=== PATIENT | male | born 1965 | race Two or more races ===

== ENCOUNTER 2024-11-09 14:20 | Emergency (ER) | payer MEDICAID, SELFPAY ==
--- NOTE | 2024-11-09 14:23 | XR_ITS ---
Examination: CTA carotids with intravenous contrast CTA brain, head with intravenous contrast. 2-D sagittal, coronal reconstructions. 3-D reconstructions. Exam date and time: November 09, 2024 1416 hours INDICATIONS: Stroke alert, onset left-sided facial droop left-sided body weakness today, large right basal ganglia hemorrhage on CT stroke alert brain scan today CTDI: vol (mGy) 12.2 DLP: (mGycm) 510 Technique: Multiple CTA axial brain, head carotid images post intravenous contrast injection 75 cc, [id number]. 2-D sagittal, coronal reconstructions. 3-D reconstructions, 3-D post processing including vascular maximum intensity projection images. Low dose protocols were performed. One or more of the following dose reduction techniques were used; automated exposure control, adjustment of the mA and/or KV according to patient size, use of iterative reconstruction technique. Findings: No significant common carotid carotid bifurcation or internal carotid artery stenoses Dominant left vertebral artery in the neck with no significant stenoses No cerebral large vessel arterial occlusions thrombus dissection or cerebral aneurysm Again noted large hemorrhage in the right basal ganglia IMPRESSION: No significant neck arterial stenoses No cerebral large vessel arterial occlusions
--- NOTE | 2024-11-09 14:23 | XR_ITS ---
Examination: CT brain head without contrast. 2-D sagittal coronal reconstructions Date and time of exam:November 09, 2024 1431 hours INDICATIONS: Stroke alert, onset left-sided facial droop with subtle body weakness today CTDI: vol (mGy):70.3 DLP: (mGycm):1160 Technique: Multiple CT axial sections of the brain have been obtained, 5 mm slice thickness. Contrast has not been administered. 2-D sagittal, coronal reconstructions have been obtained Low dose protocols were performed. One or more of the following dose reduction techniques were used; automated exposure control, adjustment of the mA and/or KV according to patient size, use of iterative reconstruction technique. Findings: 27 mm acute hemorrhage in the right basal ganglia Ventricles are not enlarged No significant mass effect Cranial vault is intact IMPRESSION: 27 mm acute hemorrhage in the right basal ganglia
--- NOTE | 2024-11-09 14:23 | EKG_ITS ---
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
--- NOTE | 2024-11-09 14:25 | PD.EDNEURO ---
Neuro Symptoms Deficit-RME/HPI General Chief Complaint: Neuro Symptoms/Deficit Stated Complaint: LT SIDE WEAKNESS SINCE 10PM LAST NIGHT Time Seen by Provider: 11/09/24 14:22 Arrival date/time: 11/09/24 14:20 RME / HPI RME / HPI Narrative: 59-year-old male patient with significant history of hypertension diabetes mellitus, came in for evaluation regarding left-sided weakness. Patient last well-known time was 10 PM last night that time went to sleep. Patient woke up at 11 AM this morning and noticed left sided facial symmetry, numbness and slight weakness to the left upper extremity. Patient told me that he is dropping a lot of things when driving on the left hand. Denies any headache. Denies any other complaints. Patient was also noticed to have slight slurring of speech. Currently taking Eliquis. Related Data Home Medications ?Medication ?Instructions ?Recorded ?Confirmed aripiprazole 15 mg tablet 15 mg PO QDAY 05/18/20 11/09/24 atorvastatin 20 mg tablet 20 mg PO QPM 05/18/20 11/09/24 metformin 1,000 mg tablet 1,000 mg PO BID 05/18/20 11/09/24 apixaban 5 mg tablet (Eliquis) 5 mg PO QDAY 06/11/20 11/09/24 empagliflozin 10 mg tablet 10 mg PO QAM 11/09/24 11/09/24 (Jardiance) losartan 50 mg tablet (Cozaar) 50 mg PO QDAY 11/09/24 11/09/24 Allergies Allergy/AdvReac Type Severity Reaction Status Date / Time No Known Allergies Allergy Verified 06/11/20 02:49 Review of Systems Review of Systems Narrative Review of Systems: Review of system reviewed and within normal limits except mentioned in HPI ED Exam Narrative Physical exam: VITAL SIGNS: Reviewed. GENERAL APPEARANCE: Alert and interactive, follows commands, no acute distress, HEAD AND FACE: Non-traumatic. Left facial asymmetry noted, no eye ptosis noted ENT: PERRL, pink conjunctivitis, eyelid no trauma, Mucous membrane moist. Tongue is slightly deviated on the left NECK: Supple, nontender, no nuchal rigidity. CHEST: No tenderness, no crepitus, no paradoxical movement, no retractions. LUNGS: Clear, well ventilated, symmetric, no rales, no wheezing, no ronchi, no stridor, good breath sounds bilaterally. HEART: Regular rate, regular rhythm, no murmur, no gallops. ABDOMEN: Soft, positive bowel sounds, nondistended, no guarding, nontender, no rebound, no masses, RECTAL: Deferred. GENITAL: Deferred. NEUROLOGICAL: Gross motor function intact sensory function intact however slight weakness on handgrip on the left, Appropriate for age. MUSCULOSKELETAL: low back nontender, full range of motion. EXTREMITIES: Nontender, full range of motion. SKIN: Color pink, dry, no rash, no lacerations, no abrasions, no contusions. LYMPHATICS: Deferred. Course Quality Measures none Orders Category Date Time Status Bedside Blood Glucose NOW Care 11/09/24 14:23 Completed Communications And Signals Supervisor NOW Care 11/09/24 14:23 Completed Continuous Pulse Oximetry NOW Care 11/09/24 14:23 Completed EKG (ED ONLY) *Do not use* NOW Care 11/09/24 14:23 Completed In and Out Catheter NEEDED Care 11/09/24 14:23 Completed Insert IV NOW Care 11/09/24 14:23 Completed NIH Stroke Scale now Care 11/09/24 14:23 Completed NPO NOW Care 11/09/24 14:23 Completed Nurse Swallow Screen x1 Care 11/09/24 14:23 Completed Consult to Neurology / Tele-Neurology Routine Cons 11/09/24 14:23 Active Referral - Central Supply Worker Stat Cons 11/09/24 14:[address] angio stroke protocol Stat Exams 11/09/24 14:[address] stroke protocol Stat Exams 11/09/24 14:23 Completed EKG (ED Only) Stat Exams 11/09/24 14:23 Draft CBC Stat Lab 11/09/24 14:25 Completed Comprehensive Metabolic Panel Stat Lab 11/09/24 14:25 Completed Magnesium Stat Lab 11/09/24 14:25 Completed Partial Thromboplastin Time Stat Lab 11/09/24 14:25 Completed Prothrombin Time with INR Stat Lab 11/09/24 14:25 Completed Troponin I Stat Lab 11/09/24 14:25 Completed Nicardipine/Ns 20Mg Ivpb [Cardene Ivpb] Med 11/09/24 14:50 Discontinued 20 mg in 200 ml IV 5 mg/hr Ondansetron Inj [Zofran Inj] Med 11/09/24 14:23 Discontinued 4 mg IV Q4HR PRN Prothrombin Complex Concent [Kcentra IV] 2,000 unit Med 11/09/24 14:54 Discontinued Sterile Water 80 ml Container,Empty 150 ml [Empty Container Bag 150 ml] 1 bag IV X1 Oxygen Delivery NOW RT 11/09/24 14:23 Completed Vital Signs Vital signs: Vital Signs Temperature 97.6 F 11/09/24 14:28 Pulse Rate 102 H 11/09/24 14:28 Respiratory Rate 16 11/09/24 14:28 Blood Pressure 146/96 H 11/09/24 14:28 Pulse Oximetry (%) 96 11/09/24 14:28 Oxygen Delivery Method Room Air 11/09/24 14:28 Neuro Symptoms / Deficit MDM Narrative MDM Narrative:: 59-year-old male patient with significant history of hypertension diabetes mellitus, came in for evaluation regarding left-sided weakness. Patient last well-known time was 10 PM last night that time went to sleep. Patient woke up at 11 AM this morning and noticed left sided facial symmetry, numbness and slight weakness to the left upper extremity. Patient told me that he is dropping a lot of things when driving on the left hand. Denies any headache. Denies any other complaints. Patient was also noticed to have slight slurring of speech. Currently taking Eliquis. Stroke alert was initiated right away. Spoke with teleneurologist who told me that patient needs to be transferred for basal ganglia hemorrhage. Patient was given Kcentra to reverse Eliquis. 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 Medications / Prescriptions Medications or Prescriptions considered but not ordered:: None Medication administrations:: Medication Administration History Discontinued Medications Nicardipine/Sodium Chloride (Cardene Ivpb) 20 mg in 200 mls @ 50 mls/hr IV .Q4H PRN; Protocol PRN Reason: PER PROTOCOL Stop: 12/09/24 14:49 Prothrombin Complex Concent ( Human) 2,000 unit/ Sterile Water 80 ml/ IV Miscellaneous Supplies 80 mls @ 320 mls/hr IV X1 ONE Stop: 11/09/24 15:08 Last Infusion: 11/09/24 15:30 Dose: Infused Documented By: Admin: 11/09/24 15:10 Dose: 320 mls/hr Documented By: DO Ondansetron HCl (Ondansetron Inj 2 Mg/Ml Inj 2 Ml) 4 mg IV Q4HR PRN PRN Reason: NAUSEA OR VOMITING Stop: 12/09/24 14:22 KcentraRebecca. Nicardipine drip was not restarted due to blood pressure less than 140 systolic. Consultations Consultation(s) initiated? (list below): Yes Consultation #1 (Physician, Specialty, Details): Teleneurologist who recommends transfer. For basal ganglia hemorrhage Diagnosis Neuro Differential Diagnosis: subarachnoid hemorrhage and cerebrovascular accident Most likely diagnosis given after review of the tests above:: Basal ganglia hemorrhage Admission Indicated Admission indicated?: not indicated Admission Request Was there a request for admission?: No Disposition Plan Disposition Plan: Transfer Discharge Attestation Discharge Attestation: Patient was accepted to [facility] Discharge Plan Plan Patient Disposition: Xfer Acute Care Fac Prescriptions/Referrals Prescriptions/Med Rec: No Action atorvastatin 20 mg Tablet 20 mg PO QPM metformin 1,000 mg Tablet 1,000 mg PO BID aripiprazole 15 mg Tablet 15 mg PO QDAY Eliquis 5 mg tablet 5 mg PO QDAY losartan [Cozaar] 50 mg tablet 50 mg PO QDAY Jardiance 10 mg tablet 10 mg PO QAM Referrals: Felipe Zavala PA-C [Primary Care Provider] - In 1 week Problem List Clinical Impression: Basal ganglia hemorrhage Patient/Caregiver Discharge Instructions Print Language: Turkmen Stand Alone Forms: Chandni Award Info., Patient Portal Info Letter
--- NOTE | 2024-11-09 14:26 | PC.NURSE ---
[facility] ARRIVAL STROKE ALERT INITIALED, TELENEURO CONSULT PLACED AT THIS TIME. PT TO CT
[2024-11-09 14:28] VITALS: BP 146/96; PULSE 102; RESP 16; TEMP 36.4; O2SAT 96
[2024-11-09 14:33] LABS: Basophils % (Auto) 0 % (0-2.5); Eosinophils # (Auto) 0.1 Thou/mm3 (0.0-0.5); Eosinophils % (Auto) 1 % (0-10); Hematocrit 47.2 % (41.0-53.0); Hemoglobin 16.2 g/dL (13.5-16.0); Immature Granulocytes % (Auto) 0 % (0-0); Immature Granulocytes Auto 0.03 Thou/mm3 (0.00-0.00); Lymphocytes # (Auto) 2.1 Thou/mm3 (1.0-4.8); Lymphocytes % (Auto) 25 % (10-50); Mean Corpuscular HGB Conc 34.3 g/dl (31.0-37.0); Mean Corpuscular Hemoglobin 30.3 pg (25.0-35.0); Mean Corpuscular Volume 88 fL (80-100); Monocytes # (Auto) 0.5 Thou/mm3 (0.0-0.8); Monocytes % (Auto) 6 % (0-12); Neutrophils # (Auto) 5.5 Thou/mm3 (1.8-7.7); Neutrophils % (Auto) 67 % (37-80); Nucleated Red Blood Cell % 0 /100 WBC (0); Platelet Count 271 Thou/mm3 (140-440); Red Blood Count 5.35 Miln/mm3 (4.50-5.90); White Blood Count 8.3 Thou/mm3 (3.8-10.6)
--- NOTE | 2024-11-09 14:46 | ESCONSULT_ITS ---
Tele Neuro Consultation Consultation Date 11/09/24 Most Recent Vital Signs Last Vital Signs Temp 97.6 F 11/09/24 14:28 Pulse 102 H 11/09/24 14:28 Resp 16 11/09/24 14:28 BP 146/96 H 11/09/24 14:28 Pulse Ox 96 11/09/24 14:28 O2 Del Method Room Air 11/09/24 14:28 Consultation Narrative [facility] Patient Name:???VAMSHI ADAME Date of :???1965 Identification Number:??? Date of Service:???11/09/2024 14:25:50 Diagnosis:?R29.810 - Facial numbness/ Facial weakness Impression: Patient is a 59-year-old male with a past medical history significant for hypertension, hyperlipidemia, diabetes on Eliquis for an unknown indication is being evaluated for concerns of left-sided weakness. Patient presents with left-sided facial weakness with mild left upper extremity weakness and sensation changes to the left hemibody. Last well-known was [address] shows right basal ganglia hemorrhage. Currently on Eliquis for an unclear indication. Has a history of hypertension. Suffers from intracranial intraparenchymal hemorrhage, most likely hypertensive bleed. No further acute ischemic stroke workup. Recommendation: Diagnostic Studies: ?Repeat CT head in first 8-12hrs ?CTA head and neck with contrast Laboratory Studies:? INR/PT ? aPTT? CBC Medications:? Hold?antiplatelet?therapy/NSAIDS/Anticoagulation ? Warfarin/Coumadin/DOAC reversal per hospital protocol Nursing Recommendations: ? Telemetry, IV Fluids?Avoid dextrose containing fluids, Maintain euglycemia ? Head of bed 30 degrees ? Neuro checks q1-2?hrs?during ICU stay ? Once stable neuro checks q4?hrs ? keep BP less than 140/90's with goal of 130/80s Consultations: ? Need Neurosurgery consultation?STAT ? Recommend Speech therapy if failed dysphagia screen ? Physical therapy/Occupational therapy DVT Prophylaxis: ? SCDs Metrics: Last Known Well: 11/08/2024 22:00:00 Dispatch Time: 11/09/2024 14:25:50 Arrival Time: 11/09/2024 14:26:06 Initial Response Time: 11/09/2024 14:27:19Symptoms: Left sided weakness. Initial patient interaction: 11/09/2024 14:37:06 NIHSS Assessment Completed: 11/09/2024 14:37:09Patient is not a candidate for Thrombolytic. Thrombolytic Medical Decision: 11/09/2024 14:42:54Patient was not deemed candidate for Thrombolytic because of following reasons: Current intracranial hemorrhage . I personally Reviewed the CT Head and it Showed R basal ganglia hemorrhage Primary Provider Notified of Diagnostic Impression and Management Plan on: 11/09/2024 14:45:19 History of Present Illness:Patient is a 59 year old Male. Patient was brought by private transportation with symptoms of Left sided weakness. Patient is a 59-year-old male with a past medical history significant for hypertension, hyperlipidemia, diabetes on Eliquis for an unknown indication is being evaluated for concerns of left-sided weakness. Patient mentions that his last well-known was approximately 10 PM yesterday. Soon after that he started noticing weakness on the left side of his face. Currently he is having sensation changes to the whole left side of his body. He is able to walk. However his face looks droopy and his speech is slurred. Mentions that he takes Eliquis every day. He also has a history of high blood pressure. Past Medical History: ?Hypertension ?Diabetes Mellitus ?Hyperlipidemia Medications: Anticoagulant use:??Yes?Eliquis No Antiplatelet use Reviewed EMR for current medications Allergies:? Description:?As per chart Social History: Smoking: No Alcohol Use: No Drug Use: No Family History: There is no family history of premature cerebrovascular disease pertinent to this consultation ROS : 14 Points Review of Systems was performed and was negative except mentioned in HPI. Past Surgical History: There Is No Surgical History Contributory To Today?s Visit Examination: BP(140/96),?Pulse(97),?Blood Glucose(172) 1A: Level of Consciousness - Alert; keenly responsive?+ 0 1B: Ask Month and Age - Both Questions Right?+ 0 1C: Blink Eyes & Squeeze Hands - Performs Both Tasks?+ 0 2: Test Horizontal Extraocular Movements - Normal?+ 0 3: Test Visual Owens - No Visual Loss?+ 0 4: Test Facial Palsy (Use Grimace if Obtunded) - Partial paralysis (lower face)? + 2 5A: Test Left Arm Motor Drift - Drift, but doesn't hit bed?+ 1 5B: Test Right Arm Motor Drift - No Drift for 10 Seconds?+ 0 6A: Test Left Leg Motor Drift - No Drift for 5 Seconds?+ 0 6B: Test Right Leg Motor Drift - No Drift for 5 Seconds?+ 0 7: Test Limb Ataxia (FNF/Heel-Flores) - Ataxia in 1 Limb?+ 1 8: Test Sensation - Mild-Moderate Loss: Less Sharp/More Dull?+ 1 9: Test Language/Aphasia - Normal; No aphasia?+ 0 10: Test Dysarthria - Mild-Moderate Dysarthria: Slurring but can be understood?+ 1 11: Test Extinction/Inattention - No abnormality?+ 0 NIHSS Score:?6 ICH Score: 0 Bernie Coma Score:13-15 (0) Age >= 80:No (0) ICH volume >= 30mL:No (0) Intraventricular hemorrhage:No (0) Infratentorial origin of hemorrhage:No (0) Pre-Morbid Modified Christ Scale:1 Points = No significant disability despite symptoms; able to carry out all usual duties and activities This consult was conducted in real time using interactive audio and video technology. Patient was informed of the technology being used for this visit and agreed to proceed. Patient located in hospital and provider located at home/office setting. Due to the immediate potential for life-threatening deterioration due to underlying acute neurologic illness, I spent 45 minutes providing critical care. This time includes time for face to face visit via telemedicine, review of medical records, imaging studies and discussion of findings with providers, the patient and/or family. Dr Miguel A Benedict [facility] For Inpatient follow-up with [facility] physician please call [facility] at . As we are not an outpatient service for any post hospital discharge needs please contact the hospital for assistance. If you have any questions for the [facility] physicians or need to reconsult for clinical or diagnostic changes please contact us via [facility] at .
[2024-11-09 14:48] LABS: INR 1.1 (0.9-1.3); Prothrombin Time 11.5 Seconds (9.0-12.2)
[2024-11-09 14:52] VITALS: BMI 36.2
[2024-11-09 14:58] VITALS: PULSE 92
[2024-11-09 14:59] LABS: Alanine Aminotransferase 25 U/L (10-49); Albumin, Serum 4.6 gm/dL (3.4-4.8); Albumin/Globulin Ratio 1.8 (1.2-2.2); Alkaline Phosphatase 116 U/L (46-116); Anion Gap 6 (7-16); Aspartate Amino Transferase 25 U/L (0-34); BUN/Creatinine Ratio 6 Ratio (12-20); Bilirubin,Total 1.2 mg/dL (0.3-1.2); Blood Urea Nitrogen 6 mg/dL (9-23); Calcium 9.2 mg/dL (8.3-10.6); Calcium (Corrected) 9.2 mg/dL (8.5-10.1); Carbon Dioxide 27.6 mMol/L (20.0-31.0); Chloride 107 mMol/L (98-107); Estimated Creatinine Clearance 98.3 mL/min (>60); Globulin 2.6 gm/dL (2.3-3.5); Glucose 176 mg/dL (74-106); Magnesium 1.9 mg/dL (1.6-2.6); Osmolality,Calculated 282 (275-295); Potassium 3.9 mMol/L (3.4-5.1); Sodium 141 mMol/L (136-145); Total Protein 7.2 gm/dL (5.7-8.2); eGFR > 60 See Note
[2024-11-09 15:00] VITALS: BP 124/88; PULSE 98; RESP 18; O2SAT 98
--- NOTE | 2024-11-09 15:00 | PC.NURSE ---
PT CAME IN WITH C/O LEFT SIDE FACIAL DROOP/NUMBNESS, SLURRED SPEECH, LEFT ARM WEAKNESS/NUMBNESS. ALL SYMPTOMS STARTED LAST NIGHT AT 1030PM. PT ALERT AND ORIENTED. SLURRED SPEECH IS NOTED. PT ABLE TO FOLLOW COMMANDS. SLIGHT WEAKNESS IS NOTED TO LEFT ARM. PT WAS ABLE TO AMBULATE ON ARRIVAL WITH NO DIFFICULTY. EYE PERRL AT SIZE 3. NO PAIN REPORTED.
[2024-11-09 15:01] LABS: Troponin I 0.049 ng/mL (0.0-0.045)
--- NOTE | 2024-11-09 15:03 | PC.CC ---
Addendum entered by Gladys Jamison RN 11/09/24 15:49: 1545 reach called back and stated it would be an eta of 66 minutes [place] airport, decision to send patient by ground made, [facility] called EMS here at this time to transport patient 1544-Pt accepted by Kamala to [facility] under Dr. George at 1544, CD made, chart printed all consents signed 1520- Called reach to transport patient Original Note: Made aware by Zuleyka Patterson coordinator skill training program patient needs to be transferred, Spoke to [facility] transfer center chart faxed, images pushed, call transferred to JOSE Arrington
[2024-11-09] MEDS: PROTHROMBIN COMPLEX CONCENT 2,000 UNIT, Sterile Water 80 ML in CONTAINER,EMPTY 150 ML 1... 320 UNIT IV (15:10)
[2024-11-09 15:16] VITALS: BP 120/73; PULSE 92; RESP 18; O2SAT 95
--- NOTE | 2024-11-09 15:43 | PC.NURSE ---
PT TRANSFERRED AT THIS TIME TO [facility] VIA EMS.
--- NOTE | 2024-11-09 15:44 | PC.NURSE ---
REPORT GIVEN EPIFANIO AT [facility]
== END 2024-11-09 15:50 | disposition short-term general hospital (02) ==
PROVIDERS: Nurse Practitioner Family; Emergency Provider Emergency Medicine; PCP Physician Assistant
DX: I61.0 Nontraumatic intracerebral hemorrhage in hemisphere, subcortical (principal); G81.94 Hemiplegia, unspecified affecting left nondominant side; R29.810 Facial weakness; I10 Essential (primary) hypertension; R29.706 NIHSS score 6; Z75.1 Person awaiting admission to adequate facility elsewhere
CPT/HCPCS: 36415; 70450; 70496; 70498; 80053; 80307; 81001; 83735; 84484; 85025; 85610; 85730; 87086; 93005; 96365; 99285; A4216; A4649; J7168; Q9967